=== PATIENT | female | born 1980 | race African-American/Black ===

== ENCOUNTER 2017-03-28 20:28 | Emergency (ER) | payer SELFPAY ==
[2017-03-28] MEDS ORDERED: ASPIRIN 81 MG TABLET, CHEWABLE PO ONE (21:09)
[2017-03-28 22:02] LABS: ABSOLUTE LYMPHOCYTES (AUTO) 0.3 10^3/uL (0.5-4.7); ABSOLUTE NEUT (AUTO) 3.7 10^3/uL (1.7-8.2); BASOPHILS % (AUTO) 0.5 % (0-2); HEMATOCRIT 32.4 % (36.0-47.0); HEMOGLOBIN 10.5 g/dL (12.0-15.5); HGB HCT DIFFERENCE -0.9; LYMPHOCYTES % (AUTO) 7.7 % (13-45); MEAN CORPUSCULAR HEMOGLOBIN 24.2 pg (27.0-33.4); MEAN CORPUSCULAR HGB CONC 32.5 g/dL (32.0-36.0); MEAN CORPUSCULAR VOLUME 75 fl (80-97); MONOCYTES % (AUTO) 0.9 % (3-13); RED BLOOD COUNT 4.35 10^6/uL (3.72-5.28); RED CELL DISTRIBUTION WIDTH 15.9 % (11.5-14.0); SEGMENTED NEUTROPHILS % (AUTO) 90.9 % (42-78)
[2017-03-28 22:14] LABS: ALANINE AMINOTRANSFERASE 32 U/L (9-52); ALBUMIN 4.6 g/dL (3.5-5.0); ALKALINE PHOSPHATASE 53 U/L (38-126); ANION GAP 11 (5-19); ASPARTATE AMINO TRANSFERASE 22 U/L (14-36); BILIRUBIN,DIRECT 0.3 mg/dL (0.0-0.4); BILIRUBIN,TOTAL 0.3 mg/dL (0.2-1.3); BLOOD UREA NITROGEN 13 mg/dL (7-20); CALCIUM 9.6 mg/dL (8.4-10.2); CARBON DIOXIDE 25 mmol/L (22-30); CHLORIDE 104 mmol/L (98-107); CREATINE KINASE 248 U/L (30-135); CREATININE RESULT 0.67 mg/dL (0.52-1.25); GLUCOSE 124 mg/dL (75-110); POTASSIUM 4.4 mmol/L (3.6-5.0); SODIUM 139.8 mmol/L (137-145); TOTAL PROTEIN 7.7 g/dL (6.3-8.2)
[2017-03-28 22:26] LABS: CREATINE KINASE MB 1.99 ng/mL (<4.55)
[2017-03-28 22:37] LABS: TROPONIN I < 0.012 ng/mL
[2017-03-28 22:53] LABS: APPEARANCE,URINE CLEAR; BILIRUBIN,URINE NEGATIVE (NEGATIVE); GLUCOSE, URINE NEGATIVE (NEGATIVE); KETONES,URINE NEGATIVE (NEGATIVE); LEUKOCYTE ESTERASE,URINE NEGATIVE (NEGATIVE); NITRITE,URINE NEGATIVE (NEGATIVE); PROTEIN,URINE NEGATIVE (NEGATIVE); URINE SPECIFIC GRAVITY 1.029
--- NOTE | 2017-03-28 22:55 | ER Document Report ---
ED Syncope and Near Syncope - General Chief Complaint: Syncope Stated Complaint: POSSBILE SYNCOPE Time Seen by Provider: 03/28/17 22:13 Mode of Arrival: Ambulatory Information source: Patient Notes: Patient states that she was at a doctor's appointment with her children this afternoon and was sitting in a chair when she began to have palpitations and then had a syncopal episode. Patient states that she was only briefly out and did not fall out of the chair. Patient states she has had 2 episodes over the past week of palpitations. Patient presently denies any complaints. Patient states she had some nausea yesterday but none today. Patient denies any vomiting diarrhea, cough or cold symptoms. Patient denies any recent travel, bedrest or immobilization. Patient denies any previous history of DVT or PE. TRAVEL OUTSIDE OF THE [place] IN LAST 30 DAYS: No - HPI Patient complains to provider of: Fainting Episode witnessed (by whom): Yes Symptoms prior to episode: Palpitations. No: Abdominal pain, Back pain, Chest pain, Fever, Headache, Racing heart, Short of breath, Sweaty Position/Activity at time of episode: Sitting Quality of pain: No pain Pain Level: Denies Context: denies: , Recent immobilization, Recent seizures, Recent travel Current symptoms: None/feels back to normal. denies: Headache, Nausea - Related Data Allergies/Adverse Reactions: No Known Allergies Allergy (Verified 03/28/17 23:37) Home Medications: Current Home Medications No Home Medications 03/28/17 [History] Past Medical History - General Information source: Patient - Social History Smoking Status: Never Smoker Frequency of alcohol use: None Drug Abuse: None Occupation: airport Lives with: Family Family History: Reviewed & Not Pertinent Patient has suicidal ideation: No Patient has homicidal ideation: No Renal/ Medical History: Denies: Hx Peritoneal Dialysis Musculoskeltal Medical History: Reports Other - back pain Surgical Hx: Negative - Immunizations Hx Diphtheria, Pertussis, Tetanus Vaccination: No Review of Systems - Review of Systems Constitutional: No symptoms reported. denies: Fever, Recent illness EENT: No symptoms reported Cardiovascular: Palpitations, Syncope. denies: Chest pain, Heart racing Respiratory: No symptoms reported. denies: Cough, Short of breath Gastrointestinal: Nausea - yest. denies: Vomiting Genitourinary: No symptoms reported Female Genitourinary: No symptoms reported Musculoskeletal: No symptoms reported. denies: Back pain, Neck pain Skin: No symptoms reported Hematologic/Lymphatic: No symptoms reported Neurological/Psychological: No symptoms reported Physical Exam - Vital signs Vitals: Temp Pulse Resp BP Pulse Ox 98.3 F 75 20 127/71 H 100 03/28/17 21:07 03/28/17 21:07 03/28/17 21:07 03/28/17 21:07 03/28/17 21:07 - General General appearance: Appears well, Alert In distress: None - HEENT Head: Normocephalic, Atraumatic Eyes: Normal Conjunctiva: Normal Pupils: PERRL Nasal: Normal Mouth/Lips: Normal Mucous membranes: Normal Neck: Normal, Supple. No: Lymphadenopathy - Respiratory Respiratory status: No respiratory distress Chest status: Nontender Breath sounds: Normal. No: Rales, Rhonchi, Stridor, Wheezing Chest palpation: Normal - Cardiovascular Rhythm: Regular Heart sounds: S1 appreciated, S2 appreciated Murmur: No - Abdominal Inspection: Normal Distension: No distension Bowel sounds: Normal Tenderness: Nontender Organomegaly: No organomegaly - Back Back: Normal, Nontender. No: CVA tenderness - Extremities General upper extremity: Normal inspection, Nontender, Normal ROM General lower extremity: Normal inspection, Nontender, Normal ROM - Neurological Neuro grossly intact: Yes Cognition: Normal Sloan Coma Scale Eye Opening: Spontaneous Sloan Coma Scale Verbal: Oriented Sloan Coma Scale Motor: Obeys Commands Sloan Coma Scale Total: 15 - Psychological Associated symptoms: Normal affect, Normal mood - Skin Skin Temperature: Warm Skin Moisture: Dry Skin Color: Normal Course - Re-evaluation Re-evalutation: 03/28/17 22:[address] Schmitz regarding patient presentation, reviewed patient's diagnostic test results. 03/29/17 00:01 Reviewed remaining results with Dr. Schmitz, agrees with discharge plan of care, recommends follow-up with primary doctor for further evaluation of thyroid function as well as cardiology follow-up - Vital Signs Vital signs: Temp Pulse Resp BP Pulse Ox 97.5 F 67 18 128/74 H 100 03/29/17 00:05 03/28/17 22:30 03/29/17 00:02 03/29/17 00:02 03/29/17 00:02 - Laboratory Result Diagrams: 03/28/17 21:50 03/28/17 21:50 Laboratory results interpreted by me: 03/28/17 03/28/17 03/28/17 21:50 21:50 21:50 Hgb 10.5 L Hct 32.4 L MCV 75 L MCH 24.2 L RDW 15.9 H Seg Neutrophils % 90.9 H Lymphocytes % 7.7 L Monocytes % 0.9 L Absolute Lymphocytes 0.3 L Absolute Monocytes 0.0 L Glucose 124 H Creatine Kinase 248 H TSH 0.18 L Urine Urobilinogen Urine Ascorbic Acid 03/28/17 22:25 Hgb Hct MCV MCH RDW Seg Neutrophils % Lymphocytes % Monocytes % Absolute Lymphocytes Absolute Monocytes Glucose Creatine Kinase TSH Urine Urobilinogen 2.0 H Urine Ascorbic Acid 40 H 03/29/17 00:01 Labs- Entire Visit 03/28/17 03/28/17 03/28/17 21:50 21:50 21:50 WBC 4.0 RBC 4.35 Hgb 10.5 L Hct 32.4 L MCV 75 L MCH 24.2 L MCHC 32.5 RDW 15.9 H Plt Count 295 Seg Neutrophils % 90.9 H Lymphocytes % 7.7 L Monocytes % 0.9 L Eosinophils % 0.0 Basophils % 0.5 Absolute Neutrophils 3.7 Absolute Lymphocytes 0.3 L Absolute Monocytes 0.0 L Absolute Eosinophils 0.0 Absolute Basophils 0.0 Sodium 139.8 Potassium 4.4 Chloride 104 Carbon Dioxide 25 Anion Gap 11 BUN 13 Creatinine 0.67 Est GFR ( Amer) > 60 Est GFR (Non-Af Amer) > 60 Glucose 124 H Calcium 9.6 Total Bilirubin 0.3 Direct Bilirubin 0.3 Indirect Bilirubin Not Reportable Neonat Total Bilirubin Not Reportable AST 22 ALT 32 Alkaline Phosphatase 53 Creatine Kinase 248 H CK-MB (CK-2) 1.99 Troponin I < 0.012 Total Protein 7.7 Albumin 4.6 TSH Free T4 Free T3 pg/mL Urine Color Urine Appearance Urine pH Ur Specific [place] Urine Protein Urine Glucose (UA) Urine Ketones Urine Blood Urine Nitrite Urine Bilirubin Urine Urobilinogen Ur Leukocyte Esterase Urine WBC (Auto) Urine RBC (Auto) Squamous Epi Cells Auto Urine Mucus (Auto) Urine Ascorbic Acid Urine HCG, Qual 03/28/17 03/28/17 03/28/17 21:50 21:50 22:25 WBC RBC Hgb Hct MCV MCH MCHC RDW Plt Count Seg Neutrophils % Lymphocytes % Monocytes % Eosinophils % Basophils % Absolute Neutrophils Absolute Lymphocytes Absolute Monocytes Absolute Eosinophils Absolute Basophils Sodium Potassium Chloride Carbon Dioxide Anion Gap BUN Creatinine Est GFR ( Amer) Est GFR (Non-Af Amer) Glucose Calcium Total Bilirubin Direct Bilirubin Indirect Bilirubin Neonat Total Bilirubin AST ALT Alkaline Phosphatase Creatine Kinase CK-MB (CK-2) Troponin I Total Protein Albumin TSH 0.18 L Free T4 1.02 Free T3 pg/mL 3.74 Urine Color YELLOW Urine Appearance CLEAR Urine pH 6.0 Ur Specific [place] 1.029 Urine Protein NEGATIVE Urine Glucose (UA) NEGATIVE Urine Ketones NEGATIVE Urine Blood NEGATIVE Urine Nitrite NEGATIVE Urine Bilirubin NEGATIVE Urine Urobilinogen 2.0 H Ur Leukocyte Esterase NEGATIVE Urine WBC (Auto) 0 Urine RBC (Auto) 1 Squamous Epi Cells Auto 1 Urine Mucus (Auto) FEW Urine Ascorbic Acid 40 H Urine HCG, Qual 03/28/17 22:25 WBC RBC Hgb Hct MCV MCH MCHC RDW Plt Count Seg Neutrophils % Lymphocytes % Monocytes % Eosinophils % Basophils % Absolute Neutrophils Absolute Lymphocytes Absolute Monocytes Absolute Eosinophils Absolute Basophils Sodium Potassium Chloride Carbon Dioxide Anion Gap BUN Creatinine Est GFR ( Amer) Est GFR (Non-Af Amer) Glucose Calcium Total Bilirubin Direct Bilirubin Indirect Bilirubin Neonat Total Bilirubin AST ALT Alkaline Phosphatase Creatine Kinase CK-MB (CK-2) Troponin I Total Protein Albumin TSH Free T4 Free T3 pg/mL Urine Color Urine Appearance Urine pH Ur Specific [place] Urine Protein Urine Glucose (UA) Urine Ketones Urine Blood Urine Nitrite Urine Bilirubin Urine Urobilinogen Ur Leukocyte Esterase Urine WBC (Auto) Urine RBC (Auto) Squamous Epi Cells Auto Urine Mucus (Auto) Urine Ascorbic Acid Urine HCG, Qual NEGATIVE - EKG Interpretation by Me EKG shows normal: Sinus rhythm Rate: Normal Rhythm: NSR Discharge - Discharge Clinical Impression: Abnormal TSH, Palpitations Syncope Qualifiers: Syncope type: unspecified Qualified Code(s): R55 - Syncope and collapse Condition: Stable Disposition: HOME, SELF-CARE Instructions: Anemia ([facility]), Palpitations (Irregular or Rapid Heartrate) ([facility]), Syncopal Episode ([facility]) Additional Instructions: Return immediately for any new or worsening symptoms Followup with your primary care provider, call tomorrow to make a followup appointment Your TSH test was low today but your free T3 and T4 tests were normal, follow- up with your primary doctor have this reevaluated. Follow-up with a model maker plaster for further evaluation of syncopal episode. Forms: Return to Work Referrals: CHRISSY WINTERS MD [Primary Care Provider] - Follow up as needed DAVID BRADSHAW MD [ACTIVE STAFF] - Follow up in 3-5 days
[2017-03-28 23:40] LABS: FREE T3 3.74 pg/mL (2.77-5.27)
[2017-03-29 00:15] VITALS: BP 128/74
--- NOTE | 2017-03-29 07:03 | EKG REPORT ---
SEVERITY:- NORMAL ECG - SINUS RHYTHM : Confirmed by: Parrish Huff 29-Mar-2017 07:02:43
== END 2017-03-29 00:10 | disposition home or self-care (01) ==
LOC: ER 20:28
DX: R94.6 Abnormal results of thyroid function studies (principal); R55 Syncope and collapse; R00.2 Palpitations
CPT/HCPCS: 36415; 80053; 81001; 81025; 82550; 82553; 84439; 84443; 84481; 84484; 85025; 93005; 93010; 99284

== ENCOUNTER 2017-12-15 10:47 | Outpatient (CLI) | payer MEDICAID ==
[~2017-12-15 10:47] MED LIST: FERRIC CARBOXYMALTOSE 750 MG in NORMAL SALINE 250 ML IV PRN; NORMAL SALINE 250 ML IV PRN
[2017-12-15 11:24] VITALS: BP 123/59
== END 2017-12-15 12:51 | disposition home or self-care (01) ==
LOC: II 10:47 → 5TH 11:01 → II 12:51
PROVIDERS: ATTEND Internal Medicine Hematology & Oncology
PROC: 3E033GC Introduction of Other Therapeutic Substance into Peripheral Vein, Percutaneous Approach (ICD-10-PCS; principal; 2017-12-15)
DX: D50.9 Iron deficiency anemia, unspecified (principal)
CPT/HCPCS: 96367; J7050; J1439; 96365

== ENCOUNTER 2017-12-22 10:46 | Outpatient (CLI) | payer MEDICAID ==
[2017-12-22 11:58] VITALS: BP 90/61
== END 2017-12-22 13:06 | disposition home or self-care (01) ==
LOC: II 10:46 → 5TH 10:48 → II 13:06
PROVIDERS: ATTEND Internal Medicine Hematology & Oncology
PROC: 3E033GC Introduction of Other Therapeutic Substance into Peripheral Vein, Percutaneous Approach (ICD-10-PCS; principal; 2017-12-22)
DX: D50.9 Iron deficiency anemia, unspecified (principal); K90.9 Intestinal malabsorption, unspecified
CPT/HCPCS: 96367; J7050; J1439; 96374

== ENCOUNTER 2019-02-28 09:36 | Emergency (ER) | payer MEDICAID ==
[2019-02-28 10:07] LABS: APPEARANCE,URINE CLEAR; BILIRUBIN,URINE NEGATIVE (NEGATIVE); COLOR,URINE STRAW; GLUCOSE, URINE NEGATIVE (NEGATIVE); KETONES,URINE NEGATIVE (NEGATIVE); LEUKOCYTE ESTERASE,URINE NEGATIVE (NEGATIVE); NITRITE,URINE NEGATIVE (NEGATIVE); PROTEIN,URINE NEGATIVE (NEGATIVE); URINE SPECIFIC GRAVITY 1.004; UROBILINOGEN,URINE NEGATIVE mg/dL (<2.0)
[2019-02-28] MEDS ORDERED: ONDANSETRON HCL INJ/PF 4 MG/2 ML SDV IV ONE (10:16)
[2019-02-28] MEDS ORDERED: MORPHINE SULFATE 10 MG/ML INJ IV ONE (10:16)
--- NOTE | 2019-02-28 10:20 | ER Document Report ---
ED GI/ - General Chief Complaint: Abdominal Pain Stated Complaint: ABDOMINAL PAIN Time Seen by Provider: 02/28/19 10:02 Primary Care Provider: [facility] [Provider Group] - Follow up tomorrow Mode of Arrival: Ambulatory Information source: Patient Notes: 38-year-old female patient who is 14 weeks by history comes emergency room with sudden onset at 5 AM this morning of abdominal pelvic cramping going into the low back. She also reports having increased urinary frequency. She reports she took stool softeners, Pepto-Bismol, and drank a lot of fluids thinking it was gas. This did not help. She reports she had 3 soft BMs. Patient reports she works for the [employer] at the [employer] and was lifting a lot of heavy baggage yesterday. She is G6, , 14 weeks . She has never had RhoGam shots in the past. TRAVEL OUTSIDE OF THE [place] IN LAST 30 DAYS: No - Related Data Allergies/Adverse Reactions: No Known Allergies Allergy (Verified 02/28/19 09:37) Past Medical History - General Information source: Patient - Social History Smoking Status: Unknown if Ever Smoked Cigarette use (# per day): No Chew tobacco use (# tins/day): No Smoking Education Provided: No Frequency of alcohol use: None Drug Abuse: None Lives with: Family Family History: Reviewed & Not Pertinent - Medical History Medical History: Negative Surgical Hx: Negative - Immunizations Hx Diphtheria, Pertussis, Tetanus Vaccination: No Review of Systems - Review of Systems Constitutional: No symptoms reported EENT: No symptoms reported Cardiovascular: No symptoms reported Respiratory: No symptoms reported Gastrointestinal: No symptoms reported Genitourinary: See HPI Female Genitourinary: See HPI Musculoskeletal: No symptoms reported Skin: No symptoms reported Hematologic/Lymphatic: No symptoms reported Neurological/Psychological: No symptoms reported Physical Exam - Vital signs Vitals: Temp Pulse Resp BP Pulse Ox 98.4 F 99 20 119/64 99 02/28/19 09:43 02/28/19 09:43 02/28/19 09:43 02/28/19 09:43 02/28/19 09:43 Interpretation: Normal - General General appearance: Alert, Anxious In distress: Moderate - HEENT Head: Normocephalic, Atraumatic Eyes: Normal Pupils: PERRL - Respiratory Respiratory status: No respiratory distress Breath sounds: Normal - Cardiovascular Rhythm: Regular Heart sounds: Normal auscultation Murmur: No - Abdominal Inspection: Normal Bowel sounds: Normal Tenderness: Tender - Some tenderness to palpate the lower abdomen pelvic region. - Back Back: Normal - Extremities General upper extremity: Normal inspection General lower extremity: Normal inspection - Neurological Neuro grossly intact: Yes - Psychological Associated symptoms: Normal affect, Normal mood - Skin Skin Temperature: Warm Skin Moisture: Dry Skin Color: Normal Course - Vital Signs Vital signs: Temp Pulse Resp BP Pulse Ox 98.4 F 99 20 119/64 99 02/28/19 09:43 02/28/19 09:43 02/28/19 09:43 02/28/19 09:43 02/28/19 09:43 - Laboratory Result Diagrams: 02/28/19 11:04 02/28/19 11:04 Laboratory results interpreted by me: 02/28/19 11:04 MCV 73 L MCH 23.8 L RDW 21.8 H Seg Neutrophils % 79.4 H Lymphocytes % 9.1 L - Diagnostic Test Radiology reviewed: Reports reviewed - Ultrasound shows a 15-week 1 day intrauterine with a heart rate of 145. There are uterine fibroids, largest measures 5.6 cm. - Consults Dr. Monteiro Time consulted: 13:00 Consulted provider: follow-up in office - She will call the office to have them contact the patient to schedule follow-up appointment tomorrow. Discharge - Discharge Clinical Impression: with 15 completed weeks gestation, Uterine fibroids affecting in second trimester, Pelvic cramping Condition: Stable Disposition: HOME, SELF-CARE Additional Instructions: Your ultrasound shows a 15-week 1 day with a heart rate of 145. There are uterine fibroids that are likely the cause of your cramping discomfort. Take ibuprofen 800 mg every 8 hours for the next few days. Follow[facility]. RETURN TO THE EMERGENCY ROOM IF ANY NEW OR WORSENING SYMPTOMS. Forms: Return to Work Referrals: [facility] [Provider Group] - Follow up tomorrow
[2019-02-28 11:15] LABS: ABSOLUTE LYMPHOCYTES (AUTO) 0.8 10^3/uL (0.5-4.7); ABSOLUTE MONOCYTES (AUTO) 0.9 10^3/uL (0.1-1.4); ABSOLUTE NEUT (AUTO) 6.6 10^3/uL (1.7-8.2); BASOPHILS % (AUTO) 0.3 % (0-2); HEMATOCRIT 37.1 % (36.0-47.0); HEMOGLOBIN 12.1 g/dL (12.0-15.5); LYMPHOCYTES % (AUTO) 9.1 % (13-45); MEAN CORPUSCULAR HEMOGLOBIN 23.8 pg (27.0-33.4); MEAN CORPUSCULAR HGB CONC 32.6 g/dL (32.0-36.0); MEAN CORPUSCULAR VOLUME 73 fl (80-97); MONOCYTES % (AUTO) 11.2 % (3-13); PLATELET COUNT 285 10^3/uL (150-450); RED BLOOD COUNT 5.08 10^6/uL (3.72-5.28); RED CELL DISTRIBUTION WIDTH 21.8 % (11.5-14.0); SEGMENTED NEUTROPHILS % (AUTO) 79.4 % (42-78); TOTAL CELLS COUNTED % (AUTO) 100 %; WHITE BLOOD COUNT 8.3 10^3/uL (4.0-10.5)
[2019-02-28 11:36] LABS: ALBUMIN 4.1 g/dL (3.5-5.0); ALKALINE PHOSPHATASE 57 U/L (38-126); ANION GAP 9 (5-19); ASPARTATE AMINO TRANSFERASE 29 U/L (14-36); BILIRUBIN,DIRECT 0.3 mg/dL (0.0-0.4); BILIRUBIN,TOTAL 0.4 mg/dL (0.2-1.3); BLOOD UREA NITROGEN 8 mg/dL (7-20); CALCIUM 9.8 mg/dL (8.4-10.2); CARBON DIOXIDE 22 mmol/L (22-30); CHLORIDE 106 mmol/L (98-107); GLUCOSE 80 mg/dL (75-110); TOTAL PROTEIN 7.2 g/dL (6.3-8.2)
--- NOTE | 2019-02-28 12:23 | RADIOLOGY REPORT (SQ) ---
EXAM DESCRIPTION: U/S OB 14+ TRNABD 1GES W/O DOP COMPLETED DATE/TIME: 02/28/2019 12:07 pm REASON FOR STUDY: 14 weeks, pelvic cramps COMPARISON: None. TECHNIQUE: Static and Dynamic grayscale imaging performed of gravid uterus using transabdominal appr oac. Additional selected color Doppler and spectral images recorded. All stored on PACS. LIMITATIONS: None. FINDINGS: FETUSES SEEN:1 EGA: 15 weeks 1 day Calculated using BPD,FL,HC,AC documented on images. No discrepancy with clinical dates. RAY: 08/21/2019 EFW: Not calculated grams PERCENTILE: Not calculated LVP: 3.4 cm PLACENTA: Anterior grade 1 PRESENTATION: Cephalic. ANATOMY: HEART RATE: 145 beats per minute. FOUR CHAMBER HEART: Not confirmed THREE VESSEL CORD: Yes. CORD INSERTION: Visualized. KIDNEYS AND BLADDER: Kidneys not seen. Bladder is normal. STOMACH: Not seen. SPINE: Normal as visualized. BRAIN AND LATERAL VENTRICLES: Structures not well seen. OTHER: No other significant finding. MATERNAL ADNEXA: Maternal ovaries not visualized. CERVICAL LENGTH: 2.7 cm. Closed. OTHER: Uterine fibroids are seen. The largest measures 5.6 cm. IMPRESSION: LIVING INTRAUTERINE . ESTIMATED GESTATIONAL AGE 15 weeks 1 day No visualized anomalies. Some anatomic structures were not able to be seen. Trimester of : Second trimester - 13 weeks 1 day to 27 weeks 6 days. TECHNICAL DOCUMENTATION: JOB ID: [id number] [employer]- All Rights Reserved Reading location - IP/workstation name: [email or web address]
[2019-02-28] MEDS ORDERED: KETOROLAC TROMETHAMINE INJ/PF 30 MG/1 ML SDV IV ONE (13:02)
[2019-02-28 13:39] VITALS: BP 115/68
== END 2019-02-28 13:40 | disposition home or self-care (01) ==
LOC: ER 09:36
DX: O34.12 Maternal care for benign tumor of corpus uteri, second trimester (principal); D25.9 Leiomyoma of uterus, unspecified; R10.2 Pelvic and perineal pain; Z3A.15 15 weeks gestation of pregnancy
CPT/HCPCS: 36415; 85025; 80053; 81001; 76805; J1885; J2270; J2405; 96374; 99284

== ENCOUNTER → 2019-04-06 | Outpatient (CLI) | payer MEDICAID | LOC: OD 16:59 | PROVIDERS: ATTEND Midwife | DX: Z36.89 Encounter for other specified antenatal screening (principal) | CPT/HCPCS: 36415; 82105 ==

== ENCOUNTER 2019-08-06 16:31 | Outpatient (CLI) | payer MEDICAID ==
--- NOTE | 2019-08-06 17:30 | Non Stress Test Report ---
Non Stress Test Datetime Report Generated by CPN: 08/06/2019 17:30 DEMOGRAPHIC EGA NST: 37.2 INDICATION Indication for Study (NST) Other: 37.2 AMA Repeat NST MONITORING Monitor Explained: Monitor Explained; Test Explained; Patient Verbalized Understanding Time on Monitor: 08/06/2019 16:43 Time off Monitor: 08/06/2019 17:23 NST Duration: 40 NST INTERVENTIONS NST Interventions: PO Hydration; Reposition Patient Physician Notified NST: Dr. See BABY A: [id number] BABY A Movement : Present Contraction Frequency : None FHR Baseline : 135 Accelerations : 15X15 Decelerations : None Variability : Moderate 6-25bpm NST Review: Meets Criteria for Reactive NST NST Review and Verified By : Simon Mcginnis RN NST Results: Reactive NST COMMENTS NST Comments: Provider on unit, reviewed strip NST REPORT Report Trigger: Send Report
== END 2019-08-06 17:28 | disposition home or self-care (01) ==
LOC: LC 16:31
PROVIDERS: ATTEND Obstetrics & Gynecology
PROC: 4A1HXCZ Monitoring of Products of Conception, Cardiac Rate, External Approach (ICD-10-PCS; principal; 2019-08-06)
DX: O09.523 Supervision of elderly multigravida, third trimester (principal); Z3A.37 37 weeks gestation of pregnancy
CPT/HCPCS: 59025

== ENCOUNTER 2019-08-14 01:12 | Inpatient (IN) | payer MEDICAID ==
[2019-08-14 01:58] LABS: APPEARANCE,URINE CLOUDY; BILIRUBIN,URINE NEGATIVE (NEGATIVE); COLOR,URINE YELLOW; GLUCOSE, URINE NEGATIVE (NEGATIVE); KETONES,URINE NEGATIVE (NEGATIVE); LEUKOCYTE ESTERASE,URINE NEGATIVE (NEGATIVE); NITRITE,URINE NEGATIVE (NEGATIVE); PROTEIN,URINE 30 mg/dL (NEGATIVE); URINE SPECIFIC GRAVITY 1.008; UROBILINOGEN,URINE NEGATIVE mg/dL (<2.0)
[2019-08-14 02:18] LABS: URINE AMPHETAMINES SCREEN NEGATIVE; URINE BARBITURATES SCREEN NEGATIVE; URINE BENZODIAZEPINES SCREEN NEGATIVE; URINE COCAINE SCREEN NEGATIVE; URINE MARIJUANA (THC) SCREEN NEGATIVE; URINE METHADONE SCREEN NEGATIVE; URINE PHENCYCLIDINE SCREEN NEGATIVE
[2019-08-14] MEDS ORDERED: OXYTOCIN 10 UNIT/ML VIAL ONE (03:13)
[2019-08-14] MEDS ORDERED: LIDOCAINE 1% INJ-PF (10 MG/ML) 30 ML SDV ONE (03:13)
[2019-08-14] MEDS ORDERED: MISOPROSTOL 0.2 MG TABLET ONE (03:13)
[2019-08-14] MEDS ORDERED: OXYTOCIN/NORMAL SALINE 20 UNIT/1,000 ML RTUINJ ONE (03:14)
[2019-08-14] MEDS ORDERED: RINGERS SOLUTION,LACTATED 1,000 ML IV PRN (03:24)
[2019-08-14 05:09] LABS: ABSOLUTE MONOCYTES (AUTO) 0.7 10^3/uL (0.1-1.4); ABSOLUTE NEUT (AUTO) 3.7 10^3/uL (1.7-8.2); BASOPHILS % (AUTO) 0.4 % (0-2); EOSINOPHILS % (AUTO) 0.4 % (0-6); HEMATOCRIT 36.1 % (36.0-47.0); HEMOGLOBIN 11.8 g/dL (12.0-15.5); LYMPHOCYTES % (AUTO) 18.8 % (13-45); MEAN CORPUSCULAR HEMOGLOBIN 25.1 pg (27.0-33.4); MEAN CORPUSCULAR HGB CONC 32.7 g/dL (32.0-36.0); MEAN CORPUSCULAR VOLUME 77 fl (80-97); MONOCYTES % (AUTO) 12.3 % (3-13); PLATELET COUNT 245 10^3/uL (150-450); RED BLOOD COUNT 4.71 10^6/uL (3.72-5.28); RED CELL DISTRIBUTION WIDTH 17.1 % (11.5-14.0); SEGMENTED NEUTROPHILS % (AUTO) 68.1 % (42-78); TOTAL CELLS COUNTED % (AUTO) 100 %; WHITE BLOOD COUNT 5.5 10^3/uL (4.0-10.5)
--- NOTE | 2019-08-14 06:13 | Admission Physical ---
Datetime Report Generated by CPN: 08/14/2019 06:13 CURRENT ADMISSION Chief Complaint: Uterine Contractions; Suspected Ruptured Membranes Indication for Induction: Not Applicable Admit Impression : Term, Intrauterine ; Ruptured Membranes Admit Plan: Admit to Unit; Initiate Labor Protocol ALLERGIES Medication Allergies: No Medication Allergies: No Known Allergies (02/28/2019) Latex: No Latex Allergies OBSTETRICAL HISTORY EDC: 08/25/2019 00:00 : 6 Para: 3 Term: 3 : 0 SAB: 2 IAB: 0 Livin Gestational Diabetes: No Rh Sensitization: No Incompetent Cervix: No RENATE: No Infertility: No ART Treatment: No Uterine Anomaly: No IUGR: No Hx Previous C/S: No Macrosomia: No Hx Loss/Stillborn: No PIH: No Hx : No Placenta Previa/Abruption: No Depression/PP Depression: No PTL/PROM: No Post Hemorrhage: No Current Procedures: Ultrasound; NST SEE RECORDS Alcohol: No Marijuana : No Cocaine: No Other Illicit Drugs: No Cigarettes: Never Smoker. [id number] MEDICAL HISTORY Diabetes: No Blood Transfusion: No Pulmonary Disease (Asthma, TB): No Breast Disease: No Hypertension: No Audit Director Surgery: No Heart Disease: No Hosp/Surgery: No Autoimmune Disorder: No Anesthetic Complications: No Kidney Disease: No Abnormal Pap Smear: No Neuro/Epilepsy: No Psychiatric Disorders: No Other Medical Diseases: No Hepatitis/Liver Disease: No Significant Family History: No Varicosities/Phlebitis: No Trauma/Violence : No Thyroid Dysfunction: No INFECTIOUS HISTORY Gonorrhea: No Genital Herpes: No Chlamydia: No Tuberculosis: No Syphilis: No Hepatitis: No HIV/AIDS Exposure: No Rash or Viral Illness: No HPV: No PHYSICAL EXAM General: Normal HEENT: Normal Neurologic: Normal Thyroid: Normal Heart: Normal Lungs: Normal Breast: Deferred Back: Normal Abdomen: Normal Genitourinary Exam: Normal Extremities: Normal DTRs: Normal Pelvic Type: Adequate Vital Signs: Reviewed VAGINAL EXAM Dilatation: 2 Effacement: 0 Station: -2 MEMBRANES Pooling: Positive Membranes: Ruptured FETUS A EGA: 38.3 Monitoring: External US FHR- Baseline: 130 Variability: Moderate 6-25bpm Decelerations: None FHR Category: Category I Presentation: Vertex Admit Comment: will augment with pitocin PLANS FOR LABOR AND DELIVERY Labor and Delivery: None Pain Management: Local; Epidural Feeding Preference: Breast Circumcision: Yes INFORMED CONSENT Signature: with User ID: [email or web address]
[2019-08-14] MEDS ORDERED: NALBUPHINE HCL INJ 10 MG/1 ML AMPULE ONE (12:26)
[2019-08-14] MEDS ORDERED: NALBUPHINE HCL INJ 10 MG/1 ML AMPULE IV ONE (13:00)
[2019-08-14] MEDS ORDERED: PHENYLEPHRINE HCL INJ/PF 10 MG/1 ML SDV ONE (14:33)
[2019-08-14] MEDS ORDERED: EPHEDRINE SULFATE INJ 50 MG/1 ML AMPULE ONE (14:33)
[2019-08-14] MEDS ORDERED: FENTANYL CITRATE INJ/PF 100 MCG/2 ML AMPUL ONE (14:33)
[2019-08-14] MEDS ORDERED: FENTANYL/BUPIVACAINE/NS/PF 0 MCG/0 ML RTUINJ EPI ONE (14:34)
[2019-08-14] MEDS ORDERED: BUPIVACAINE HCL 0.25 % INJ/PF (2.5 MG/1 ML) 30 ML VIAL ONE (14:34)
[2019-08-14] MEDS ORDERED: ACETAMINOPHEN WITH CODEINE #3 TABLET PO PRN (15:33)
[2019-08-14] MEDS ORDERED: NA PHOS,M-B/NA PHOS,DI-BA (ADULT) 133 ML ENEMA PR PRN (15:33)
[2019-08-14] MEDS ORDERED: PROMETHAZINE HCL INJ 25 MG/1 ML VIAL IV PRN (15:33)
[2019-08-14] MEDS ORDERED: MEASLES,MUMPS&RUBELLA VACC/PF 0.5 ML VIAL SUBCUT PRN (15:33)
[2019-08-14] MEDS ORDERED: GLYCERIN/WITCH HAZEL LEAF 1 EACH MED..WIPE TP PRN (15:33)
[2019-08-14] MEDS ORDERED: DIBUCAINE 1% OINTMENT 28 GM TP PRN (15:33)
[2019-08-14] MEDS ORDERED: PSEUDOEPHEDRINE HCL 30 MG TABLET PO PRN (15:33)
[2019-08-14] MEDS ORDERED: MISOPROSTOL 0.2 MG TABLET PR PRN (15:33)
[2019-08-14] MEDS ORDERED: MAGNESIUM HYDROXIDE SUSP 30 ML UDCUP PO PRN (15:33)
[2019-08-14] MEDS ORDERED: DIPHENHYDRAMINE HCL 25 MG CAPSULE PO PRN (15:33)
[2019-08-14] MEDS ORDERED: PROMETHAZINE HCL 25 MG TABLET PO PRN (15:33)
[2019-08-14] MEDS ORDERED: ACETAMINOPHEN 650 MG SUPP.RECT PR PRN (15:33)
[2019-08-14] MEDS ORDERED: OXYTOCIN/NORMAL SALINE 20 UNIT/1,000 ML RTUINJ IV PRN (15:33)
[2019-08-14] MEDS ORDERED: PROMETHAZINE HCL 25 MG SUPP.RECT PR PRN (15:33)
[2019-08-14] MEDS ORDERED: DIPH/PERTUSS(ACELL)/TETANUS VAC/PF 0.5 ML SYR (>=10YO) IM PRN (15:33)
[2019-08-14 16:48] LABS: HEMATOCRIT 37.9 % (36.0-47.0); HEMOGLOBIN 12.6 g/dL (12.0-15.5); MEAN CORPUSCULAR HEMOGLOBIN 25.6 pg (27.0-33.4); MEAN CORPUSCULAR HGB CONC 33.3 g/dL (32.0-36.0); MEAN CORPUSCULAR VOLUME 77 fl (80-97); PLATELET COUNT 242 10^3/uL (150-450); RED BLOOD COUNT 4.94 10^6/uL (3.72-5.28); RED CELL DISTRIBUTION WIDTH 16.5 % (11.5-14.0); WHITE BLOOD COUNT 8.7 10^3/uL (4.0-10.5)
--- NOTE | 2019-08-14 17:12 | Delivery Summary ---
Del Sum A-C Datetime Report Generated by CPN: 08/14/2019 17:12 DELIVERY PERSONNEL DELIVERY PERSONNEL: [id number] Delivery Doctor:: Mimi Viera CNM Labor and Delivery Nurse:: Lois Cedeno RNflat sorter processor Nurse:: Gladis Magallon RN Nursery Nurse:: Malka Reardon RN Engineer Automated Equipment/EXTERIOR DOOR INSTALLER: Miranda Akhtar CNA II MATERNAL INFORMATION Delivery Anesthesia: None Medications After Delivery: Pitocin Bolus-Please Comment; Pitocin Drip 20 Units/1000ml NSS; Cytotec 600mcg Per Rectum/Vagina Meds After Delivery Comment: Pitocin 20units/1000mL Delivery QBL: 100 Maternal Complications: None Provider Comments: pt out of control with pushing, viable male, at delivery of head, mom stopped pushing and we had a shoulder dystocia, Tessie, and delivery with suprapubic pressure, placed on mothers abdomen, stimulated, cord clamped and cut by father, baby started crying, moving all extremities, good cry and heart rate Spont delivery of grossly nl intact placenta, 3 VC,cord blood obtained no lacerations mom and baby remain in recovery in stable condition Cytotec 600 mcg via rectum LABOR SUMMARY EDC: 08/25/2019 00:00 No. Babies in Womb: 1 Attempted: No Labor Anesthesia: None LABOR INFORMATION Reason for Induction: Not Applicable Onset of Labor: 08/14/2019 13:00 Complete Dilatation: 08/14/2019 15:07 Oxytocin: Induction Group B Beta Strep: Negative Antibiotics # of Doses: N/a Antibiotics Time of Last Dose: n/a Name of Antibiotic Given: n/a Steroids Given: None Reason Steroids Not Administered: Not Applicable MEMBRANES Membranes Rupture Method: Spontaneous Rupture of Membranes: 08/14/2019 00:00 Length of Rupture (hr): 15.32 Amniotic Fluid Color: Clear Amniotic Fluid Amount: Small Amniotic Fluid Odor: Normal STAGES OF LABOR Stage 1 hr: 2 Stage 1 min: 7 Stage 2 hr: 0 Stage 2 min: 12 Stage 3 hr: 0 Stage 3 min: 3 Total Time in Labor hr: 2 Total Time in Labor min: 22 VAGINAL DELIVERY Episiotomy: None Laceration #1: None Laceration Repair: Not Applicable Sponge Count Correct: N/A Sharps Count Correct: N/A BABY A INFORMATION Delivery Date/Time: 08/14/2019 15:19 Method of Delivery: Vaginal Born in Route : No : N/A Forceps: N/A Vacuum Extraction: N/A Shoulder Dystocia : Yes SHOULDER DYSTOCIA BABY A Delivery of Head: 08/14/2019 15:18 Time Head to Delivery : 1.0 1st Intervention to Resolve: McRobert's Maneuver 2nd Intervention to Resolve: Suprapubic Pressure Verify NO Fundal Pressure: No Fundal Pressure Applied Arm Under Symphisis at Del: Right PRESENTATION/POSITION BABY A Presentation: Cephalic Cephalic Presentation: Vertex Vertex Position: Left Occipital Anterior Breech Presentation: N/A PLACENTA INFORMATION BABY A Placenta Delivery Time : 08/14/2019 15:22 Placenta Method of Delivery: Spontaneous Placenta Status: Delivered SCORES BABY A Heart Rate 1 min: >100 bpm Resp Effort 1 min: Good Cry Reflex Irritability 1 min: Cough or Sneeze or Pulls Away Muscle Tone 1 min: Active Motion Color 1 min: Blue/Pale Resuscitation Effort 1 min: Tactile Stimulation SCORE 1 MIN: 8 Heart Rate 5 min: >100 bpm Resp Effort 5 min: Good Cry Reflex Irritability 5 min: Cough or Sneeze or Pulls Away Muscle Tone 5 min: Active Motion Color 5 min: Body [place], Extremities Blue Resuscitation Effort 5 min: Tactile Stimulation SCORE 5 MIN: 9 INFORMATION BABY A Gestational Age at Delivery: 38.3 Gestational Status: Early Term- 37- 38.6 Weeks Infant Outcome : Liveborn Infant Condition : Stable Infant Sex: Male IDENTIFICATION BABY A Infant Verification Date/Time: 08/14/2019 15:34 ID Band Number: [id number] Mother's Name Verified: Yes Infant RN Verifying Infant: AFmichele, RN and R. [place], RN WEIGHT/LENGTH BABY A Birthweight (gm): 3182 Infant Weight (lb): 7 Infant Weight (oz): 0 Infant Length (in): 19.75 Length (cm): 50.17 CORD INFORMATION BABY A No. Cord Vessels: 3 Nuchal Cord : N/A Cord Blood Taken: Yes-For Eval (Mom's Blood Type - or O+) Suction: None ASSESSMENT BABY A Skin to Skin: Yes BABY B INFORMATION : N/A
[2019-08-14] MEDS ORDERED: IBUPROFEN 800 MG TABLET ONE ×2 (17:32→23:58)
[2019-08-14] MEDS ORDERED: BENZOCAINE/MENTHOL AEROSOL SPRAY 56 ML ONE (17:55)
[2019-08-14] MEDS: BENZOCAINE/MENTHOL AEROSOL SPRAY 56 ML TOP PRN (18:20)
[2019-08-14] MEDS ORDERED: ACETAMINOPHEN WITH CODEINE #3 TABLET ONE (21:16)
[2019-08-14] MEDS: ACETAMINOPHEN WITH CODEINE #3 TABLET PO PRN (21:18)
[2019-08-14] MEDS ORDERED: FAMOTIDINE 20 MG TABLET ONE (23:58)
[2019-08-15] MEDS: FAMOTIDINE 20 MG TABLET PO SCH ×3 (00:01→21:07)
[2019-08-15] MEDS: IBUPROFEN 800 MG TABLET PO SCH ×4 (00:01→21:07)
[2019-08-15] MEDS ORDERED: IBUPROFEN 800 MG TABLET ONE (06:01)
[2019-08-15] MEDS: DOCUSATE SODIUM 100 MG CAPSULE PO SCH ×3 (08:23→17:58)
[2019-08-15] MEDS: FERROUS SULFATE 325 MG TABLET PO SCH ×3 (08:23→17:58)
[2019-08-15] MEDS: SENNOSIDES/DOCUSATE 8.6-50 MG 1 EACH TABLET PO SCH (09:41)
[2019-08-15] MEDS: PRENATAL VITAMIN W DHA CAPSULE PO SCH (09:41)
--- NOTE | 2019-08-15 09:53 | PDOC PROGRESS REPORT ---
Subjective-OB Progress Note for:: 08/15/19 - PP Day #1, doing well, Rh+/ Rubella Immunek,, Physical Exam (OB) Vital Signs: Temp Pulse Resp BP Pulse Ox 97.7 F 66 16 122/58 L 99 08/15/19 08:40 08/15/19 08:40 08/15/19 08:40 08/15/19 08:40 08/15/19 08:40 Intake & Output 08/14/19 08/15/19 08/16/19 06:59 06:59 06:59 Weight 103.6 kg - General General Appearance: Appears well, Alert In distress: None - Respiratory Respiratory Status: No respiratory distress - Abdominal Tenderness: Nontender - Genitourinary Genitourinary Note: voiding - Extremities Upper extremity: Normal inspection Lower extremities: Normal inspection - Skin Skin Temperature: Warm Skin Moisture: Dry Objective-Diagnostic Laboratory: 08/14/19 16:32 08/14/19 16:32 WBC 8.7 RBC 4.94 Hgb 12.6 Hct 37.9 MCV 77 L MCH 25.6 L MCHC 33.3 RDW 16.5 H Plt Count 242 Assessment and Plan(PN) - Assessment and Plan (1) Routine follow-up Is this a current diagnosis for this admission?: Yes (2) Delivery normal Is this a current diagnosis for this admission?: Yes Plan:: Routine PP orders, ambulation encouraged - Time Spent with Patient Time with patient: Less than 15 minutes Medications reviewed and adjusted accordingly: Yes - Disposition Anticipated Discharge: Home Within: within 24 hours
[2019-08-15] MEDS: ACETAMINOPHEN WITH CODEINE #3 TABLET PO PRN (21:18)
[2019-08-16] MEDS: ACETAMINOPHEN WITH CODEINE #3 TABLET PO PRN ×2 (05:54→11:06)
[2019-08-16] MEDS: IBUPROFEN 800 MG TABLET PO SCH (05:54)
[2019-08-16 08:50] VITALS: BP 121/59
--- NOTE | 2019-08-16 09:59 | PDOC DISCHARGE SUMMARY ---
Impression - Admit/DC Date/PCP Admission Date/Primary Care Provider: 08/14/19 02:12 DENISE PATINO MD Discharge Date: 08/16/19 - Discharge Diagnosis (1) Delivery normal Is this a current diagnosis for this admission?: Yes (2) Routine follow-up Is this a current diagnosis for this admission?: Yes - Additional Information Resuscitation Status: Full Code Discharge Diet: Regular Discharge Activity: Balance Activity w/Rest, Pelvic Rest Referrals: DENISE PATINO MD [Primary Care Provider] - Prescriptions: Acetaminophen with Codeine [Tylenol #3 Tablet] 1 each PO Q4HP PRN #20 tablet PRN Reason: Pain Scale Of 4 Ibuprofen [Motrin 800 mg Tablet] 800 mg PO Q8HP PRN #60 tablet PRN Reason: Pain Scale Of 2 Home Medications: Vits96/Iron Fum/Folic [ Tablet] 1 each PO DAILY 08/06/19 Ferrous Gluconate [Iron] 1 tab PO DAILY 08/14/19 Acetaminophen with Codeine [Tylenol #3 Tablet] 1 each PO Q4HP PRN #20 tablet 08/16/19 Ibuprofen [Motrin 800 mg Tablet] 800 mg PO Q8HP PRN #60 tablet 08/16/19 Results Laboratory Results: WBC 8.7 10^3/uL (4.0-10.5) 08/14/19 16:32 RBC 4.94 10^6/uL (3.72-5.28) 08/14/19 16:32 Hgb 12.6 g/dL (12.0-15.5) 08/14/19 16:32 Hct 37.9 % (36.0-47.0) 08/14/19 16:32 MCV 77 fl (80-97) L 08/14/19 16:32 MCH 25.6 pg (27.0-33.4) L 08/14/19 16:32 MCHC 33.3 g/dL (32.0-36.0) 08/14/19 16:32 RDW 16.5 % (11.5-14.0) H 08/14/19 16:32 Plt Count 242 10^3/uL (150-450) 08/14/19 16:32 Lymph % (Auto) 18.8 % (13-45) 08/14/19 02:42 [place] % (Auto) 12.3 % (3-13) 08/14/19 02:42 Eos % (Auto) 0.4 % (0-6) 08/14/19 02:42 Baso % (Auto) 0.4 % (0-2) 08/14/19 02:42 Absolute Neuts (auto) 3.7 10^3/uL (1.7-8.2) 08/14/19 02:42 Absolute Lymphs (auto) 1.0 10^3/uL (0.5-4.7) 08/14/19 02:42 Absolute Monos (auto) 0.7 10^3/uL (0.1-1.4) 08/14/19 02:42 Absolute Eos (auto) 0.0 10^3/uL (0.0-0.6) 08/14/19 02:42 Absolute Basos (auto) 0.0 10^3/uL (0.0-0.2) 08/14/19 02:42 Seg Neutrophils % 68.1 % (42-78) 08/14/19 02:42 Urine Color YELLOW 08/14/19 01:35 Urine Appearance CLOUDY 08/14/19 01:35 Urine pH 7.0 (5.0-9.0) 08/14/19 01:35 Ur Specific [place] 1.008 08/14/19 01:35 Urine Protein 30 mg/dL (NEGATIVE) H 08/14/19 01:35 Urine Glucose (UA) NEGATIVE mg/dL (NEGATIVE) 08/14/19 01:35 Urine Ketones NEGATIVE mg/dL (NEGATIVE) 08/14/19 01:35 Urine Blood MODERATE (NEGATIVE) H 08/14/19 01:35 Urine Nitrite NEGATIVE (NEGATIVE) 08/14/19 01:35 Urine Bilirubin NEGATIVE (NEGATIVE) 08/14/19 01:35 Urine Urobilinogen NEGATIVE mg/dL (<2.0) 08/14/19 01:35 Ur Leukocyte Esterase NEGATIVE (NEGATIVE) 08/14/19 01:35 Urine Ascorbic Acid NEGATIVE (NEGATIVE) 08/14/19 01:35 Membranes Rupture POSITIVE (NEGATIVE) H 08/14/19 01:35 Urine Opiates Screen NEGATIVE 08/14/19 01:35 Urine Methadone Screen NEGATIVE 08/14/19 01:35 Ur Barbiturates Screen NEGATIVE 01/28/20 01:35 Ur Phencyclidine Scrn NEGATIVE 08/14/19 01:35 Ur Amphetamines Screen NEGATIVE 08/14/19 01:35 U Benzodiazepines Scrn NEGATIVE 08/14/19 01:35 Urine Cocaine Screen NEGATIVE 08/14/19 01:35 U Marijuana (THC) Screen NEGATIVE 08/14/19 01:35 RPR NONREACTIVE (NONREACTIVE) 08/14/19 02:42 Blood Type O POSITIVE 08/14/19 02:42 Antibody Screen NEGATIVE 08/14/19 02:42
[2019-08-16] MEDS: PRENATAL VITAMIN W DHA CAPSULE PO SCH (11:02)
[2019-08-16] MEDS: SENNOSIDES/DOCUSATE 8.6-50 MG 1 EACH TABLET PO SCH (11:03)
[2019-08-16] MEDS: DOCUSATE SODIUM 100 MG CAPSULE PO SCH (11:03)
[2019-08-16] MEDS: FAMOTIDINE 20 MG TABLET PO SCH (11:03)
[2019-08-16] MEDS: FERROUS SULFATE 325 MG TABLET PO SCH (11:03)
[2019-08-16] MEDS: BENZOCAINE/MENTHOL AEROSOL SPRAY 56 ML TOP PRN (12:44)
== END 2019-08-16 12:50 | disposition home or self-care (01) | DRG 807 ==
LOC: LC 01:12 → LR 02:12 → 2S 08-15 08:35
PROVIDERS: ADMIT Obstetrics & Gynecology; ATTEND Obstetrics & Gynecology
PROC: 10E0XZZ Delivery of Products of Conception, External Approach (ICD-10-PCS; principal; 2019-08-14)
PROC: 3E033VJ Introduction of Other Hormone into Peripheral Vein, Percutaneous Approach (ICD-10-PCS; 2019-08-14)
DX: O66.0 Obstructed labor due to shoulder dystocia (principal); Z37.0 Single live birth; Z3A.38 38 weeks gestation of pregnancy
CPT/HCPCS: 36415; 80307; 81005; 84112; 85025; 86592; 86850; 86900; 86901; 94760; J2300; J2370; J2590; J3010; J3490

== ENCOUNTER 2019-09-19 15:47 | Emergency (ER) | payer MEDICAID ==
--- NOTE | 2019-09-19 17:37 | ER Document Report ---
ED Medical Screen (RME) - General Stated Complaint: RIGHT ABDOMINAL PAIN Time Seen by Provider: 09/19/19 17:31 Primary Care Provider: DENISE PATINO MD [Primary Care Provider] - Follow up as needed Notes: HPI: 39-year-old female who is 1 month vaginal delivery at term with right upper quadrant pain fairly constant for 3 days with chills and subjective fevers. Has had nausea no vomiting. Denies breast pain redness or tenderness. Patient states she started with some periumbilical cramping and discomfort that was intermittent in nature over the last week but in the last 3 days she has had more constant right upper quadrant pain. Feels like it radiates into the back on the right side. I have greeted and performed a rapid initial assessment of this patient. A comprehensive ED assessment and evaluation of the patient, analysis of test results and completion of the medical decision making process will be conducted by additional ED providers PHYSICAL EXAMINATION: GENERAL: Well-appearing, well-nourished and in mild acute distress. HEAD: Atraumatic, normocephalic. EYES: sclera anicteric, conjunctiva are normal. ENT: Moist mucous membranes. NECK: Normal range of motion LUNGS: Normal work of breathing, clear to auscultation HEART: 2+ radial pulses bilaterally, regular rate and rhythm ABD: limited by positioning for exam in triage. Moderately uncomfortable in the right upper quadrant on palpation, no right lower quadrant tenderness on palpation EXTREMITIES: no pitting or edema. No cyanosis. NEUROLOGICAL: No focal neurological deficits. Moves all extremities spontaneously and on command. PSYCH: Normal mood, normal affect. SKIN: Warm, Dry, normal turgor, no rashes or lesions noted. TRAVEL OUTSIDE OF THE [place] IN LAST 30 DAYS: No - Related Data Allergies/Adverse Reactions: No Known Allergies Allergy (Verified 09/19/19 17:30) Past Medical History Renal/ Medical History: Denies: Hx Peritoneal Dialysis - Immunizations Hx Diphtheria, Pertussis, Tetanus Vaccination: No Physical Exam - Vital signs Vitals: Temp Pulse Resp BP Pulse Ox 98.3 F 92 20 127/69 H 97 09/19/19 16:33 09/19/19 16:33 09/19/19 16:33 09/19/19 16:33 09/19/19 16:33 Course - Vital Signs Vital signs: Temp Pulse Resp BP Pulse Ox 98.3 F 92 20 127/69 H 97 09/19/19 16:33 09/19/19 16:33 09/19/19 16:33 09/19/19 16:33 09/19/19 16:33 Doctor's Discharge - Discharge Referrals: DENISE PATINO MD [Primary Care Provider] - Follow up as needed
--- NOTE | 2019-09-19 18:43 | RADIOLOGY REPORT (SQ) ---
EXAM DESCRIPTION: U/S ABDOMEN LIMITED W/O DOP COMPLETED DATE/TIME: 09/19/2019 6:29 pm REASON FOR STUDY: RUQ pain fever COMPARISON: None. TECHNIQUE: Dynamic and static grayscale images acquired of the abdomen and recorded on PACS. [place] selected color Doppler and spectral images recorded. LIMITATIONS: None. FINDINGS: PANCREAS: No masses. Visualized pancreatic duct normal caliber. LIVER: No masses. Echotexture normal. LIVER VASCULATURE: Normal directional flow of the main portal vein and hepatic veins. GALLBLADDER: No stones. Normal wall thickness. No pericholecystic fluid. ULTRASOUND-DETECTED MAYEN'S SIGN: Negative. INTRAHEPATIC DUCTS AND COMMON DUCT: CBD and intrahepatic ducts normal caliber. No filling defects. INFERIOR VENA CAVA: Normal flow. AORTA: No aneurysm. RIGHT KIDNEY: Normal size. Normal echogenicity. No solid or suspicious masses. No hydronephrosis. No calcifications. PERITONEAL AND RIGHT PLEURAL SPACE: No ascites or effusions. OTHER: No other significant findings. IMPRESSION: NORMAL RIGHT UPPER QUADRANT ULTRASOUND. TECHNICAL DOCUMENTATION: JOB ID: [id number] 2010 [employer]- All Rights Reserved Reading location - IP/workstation name: [email or web address]
[2019-09-19 19:31] LABS: ABSOLUTE BASOPHILS # (AUTO) 0.1 10^3/uL (0.0-0.2); ABSOLUTE LYMPHOCYTES (AUTO) 1.2 10^3/uL (0.5-4.7); ABSOLUTE MONOCYTES (AUTO) 0.8 10^3/uL (0.1-1.4); ABSOLUTE NEUT (AUTO) 5.9 10^3/uL (1.7-8.2); BASOPHILS % (AUTO) 0.8 % (0-2); EOSINOPHILS % (AUTO) 0.1 % (0-6); HEMATOCRIT 42.4 % (36.0-47.0); HEMOGLOBIN 14.1 g/dL (12.0-15.5); LYMPHOCYTES % (AUTO) 14.7 % (13-45); MEAN CORPUSCULAR HEMOGLOBIN 25.3 pg (27.0-33.4); MEAN CORPUSCULAR HGB CONC 33.2 g/dL (32.0-36.0); MEAN CORPUSCULAR VOLUME 76 fl (80-97); MONOCYTES % (AUTO) 9.9 % (3-13); PLATELET COUNT 232 10^3/uL (150-450); RED BLOOD COUNT 5.57 10^6/uL (3.72-5.28); RED CELL DISTRIBUTION WIDTH 16.4 % (11.5-14.0); SEGMENTED NEUTROPHILS % (AUTO) 74.5 % (42-78); TOTAL CELLS COUNTED % (AUTO) 100 %; WHITE BLOOD COUNT 7.9 10^3/uL (4.0-10.5)
[2019-09-19 20:17] LABS: ALBUMIN 4.3 g/dL (3.5-5.0); ALKALINE PHOSPHATASE 75 U/L (38-126); ANION GAP 12 (5-19); ASPARTATE AMINO TRANSFERASE 30 U/L (14-36); BILIRUBIN,DIRECT 0.3 mg/dL (0.0-0.4); BILIRUBIN,TOTAL 0.9 mg/dL (0.2-1.3); BLOOD UREA NITROGEN 9 mg/dL (7-20); CALCIUM 9.3 mg/dL (8.4-10.2); CARBON DIOXIDE 25 mmol/L (22-30); CHLORIDE 100 mmol/L (98-107); GLUCOSE 79 mg/dL (75-110); POTASSIUM 3.9 mmol/L (3.6-5.0); TOTAL PROTEIN 7.9 g/dL (6.3-8.2)
[2019-09-19 20:43] LABS: APPEARANCE,URINE SLIGHTLY-CLOUDY; BILIRUBIN,URINE NEGATIVE (NEGATIVE); COLOR,URINE YELLOW; GLUCOSE, URINE NEGATIVE (NEGATIVE); KETONES,URINE 20 mg/dL (NEGATIVE); LEUKOCYTE ESTERASE,URINE SMALL (NEGATIVE); NITRITE,URINE NEGATIVE (NEGATIVE); PROTEIN,URINE NEGATIVE (NEGATIVE); URINE SPECIFIC GRAVITY 1.019
--- NOTE | 2019-09-19 22:18 | RADIOLOGY REPORT (SQ) ---
EXAM DESCRIPTION: Contrast-enhanced CT scan of the abdomen and pelvis CLINICAL HISTORY: 39 years Female; RLQ Pain s/p delivery Jul TECHNIQUE: CT of the abdomen and pelvis with intravenous contrast. Delayed imaging of the abdomen and pelvis was also performed. All CT scans at this facility use dose modulation, iterative reconstruction, and/or weight based dosing when appropriate to reduce radiation dose to as low as reasonably achievable. This exam was performed according to our department optimization program which includes automated exposure control, adjustment of the mA and/or kv according to patient size and/or use of iterative reconstruction technique. COMPARISON: None. FINDINGS: Lower chest: 3 mm pulmonary nodule seen along the fissure in the left lung. The lungs are otherwise clear. No pneumothorax or pleural effusion. Heart size is normal. Abdomen: Liver and biliary tree: Mild diffuse fatty infiltration of the liver. The gallbladder is unremarkable. Portal vein and hepatic veins are patent. Pancreas: Normal Spleen:Within normal limits Kidneys: Kidneys are normal in size, shape and position. No stones. No mass or hydronephrosis. Symmetric renal enhancement. On delayed images there is symmetric contrast excretion and the ureters are unremarkable. Adrenal glands:Within normal limits Vascular structures:Within normal limits Retroperitoneum: No mass or lymphadenopathy the right gonadal veins are distended. There is enhancement of the canal veins. Abdominal wall: normal GI: Moderate stool is present throughout the colon. Inflammation is seen adjacent to the right colon with fluid tracking along the right paracolic gutter. There are diverticula in this region and this may represent subtle diverticulitis. Appendix: The appendix is visualized. It is distended with air and measures up to 7 mm. No definitive acute appendicitis or perforation. Terminal ileum appears normal. General: Free fluid is present along the right paracolic gutter and in the pelvis. Trace free fluid in the cul-de-sac Pelvis: Lymph nodes: No mass or lymphadenopathy Bladder: Unremarkable. Pelvis: The uterus is enlarged consistent with the state. In the right side of the uterus is an eggshell calcification measuring 3.7 cm with central low density. This most likely represents a myoma. There does appear to be some fluid scattered in the endometrial canal. There is a low density area in the posterior myometrium which also may represent a small myoma. Bones: Degenerative changes noted in the lower lumbar spine. IMPRESSION: Subtle inflammation involving the distal right colon with pericolonic soft tissue stranding and fluid. This suggests focal colitis or diverticulitis. The appendix is visualized but does not appear to be inflamed. appearance of the uterus. No hydronephrosis bilaterally.
[2019-09-19 22:43] VITALS: BP 131/60
--- NOTE | 2019-09-19 22:57 | ER Document Report ---
ED General - General Chief Complaint: Abdominal Pain Stated Complaint: RIGHT ABDOMINAL PAIN Time Seen by Provider: 09/19/19 17:31 Primary Care Provider: DENISE PATINO MD [Primary Care Provider] - Follow up as needed Mode of Arrival: Ambulatory Information source: Patient, Relative Notes: Patient is a 39-year-old female presenting to the emergency department chief complaint of abdominal pain. Patient states is been ongoing for the past week she states that about a week ago she had a large bowel movement and since that time has not had a repeat bowel movement but is had generalized aches and pains worse to the right lower quadrant she also reports fever and chills without objective temperature for the past 2 days. Patient states she had a normal vaginal delivery August 06 she had a appointment which was determined to be normal. Patient denies travel history trauma history or obvious sick contacts. TRAVEL OUTSIDE OF THE [place] IN LAST 30 DAYS: No - HPI Onset: Last week Onset/Duration: Gradual, Worse Quality of pain: Cramping Severity: Moderate Pain Level: 2 Associated symptoms: None Exacerbated by: Movement Relieved by: Denies Similar symptoms previously: No Recently seen / treated by doctor: No - Related Data Allergies/Adverse Reactions: No Known Allergies Allergy (Verified 09/19/19 17:30) Past Medical History - General Information source: Patient, Relative - Social History Smoking Status: Never Smoker Chew tobacco use (# tins/day): No Frequency of alcohol use: None Drug Abuse: None Lives with: Family, Spouse/Significant other Family History: Reviewed & Not Pertinent Patient has suicidal ideation: No Patient has homicidal ideation: No - Medical History Medical History: Negative Renal/ Medical History: Denies: Hx Peritoneal Dialysis Surgical Hx: Negative - Immunizations Hx Diphtheria, Pertussis, Tetanus Vaccination: No Review of Systems - Review of Systems Notes: REVIEW OF SYSTEMS: CONSTITUTIONAL : Denies fever, chills, or sweats. Denies recent illness. EENT: Denies eye, ear, throat, or mouth pain or symptoms. Denies nasal or sinus congestion. CARDIOVASCULAR: Denies chest pain. RESPIRATORY: Denies cough, cold, or chest congestion. Denies shortness of breath, difficulty breathing, or wheezing. GASTROINTESTINAL: Per HPI GENITOURINARY: Denies difficulty urinating, painful urination, burning, frequency, or blood in urine. MUSCULOSKELETAL: Denies neck or back pain or joint pain or swelling. SKIN: Denies rash or skin lesions. HEMATOLOGIC : Denies easy bruising or bleeding. NEUROLOGICAL: Denies altered mental status or loss of consciousness. Denies headache. Denies weakness or paralysis or loss of use of either side. Denies problems with gait or speech. Denies sensory or motor loss. PSYCHIATRIC: Denies suicidal or homicidal ideations 10 Systems are negative unless otherwise specified above Physical Exam - Vital signs Vitals: Temp Pulse Resp BP Pulse Ox 98.3 F 92 20 127/69 H 97 09/19/19 16:33 09/19/19 16:33 09/19/19 16:33 09/19/19 16:33 09/19/19 16:33 - Notes Notes: PHYSICAL EXAMINATION: GENERAL: Well-appearing, well-nourished and in no acute distress. HEAD: Atraumatic, normocephalic. EYES: Pupils equal round and reactive to light, extraocular movements intact, sclera anicteric, conjunctiva are normal. ENT: nares patent, oropharynx clear without exudates. Moist mucous membranes. NECK: Normal range of motion, supple without lymphadenopathy, no appreciable JVD LUNGS: Lungs clear to auscultation bilaterally and equal. No wheezes rales or rhonchi. HEART: Regular rate and rhythm without murmurs ABDOMEN: Soft, mildyl tender to RLQ, normal bowel sounds. Patient did have tenderness with and without palpation positive psoas sign minimal guarding EXTREMITIES: Active full range of motion, no pitting or edema. No cyanosis. 2+ pulses x4 NEUROLOGICAL: No focal neurological deficits. Moves all extremities spontaneously and on command. SKIN: Warm, Dry, and intact. Normal turgor, no rashes or lesions noted. Course - Re-evaluation Re-evalutation: 09/19/19 23:44 Patient has been reevaluated multiple times while in the emergency department. The patient has remained stable. I have reviewed the patient's laboratory and radiologic results. Ultrasound demonstrated no significant right upper quadrant findings. The CT of the abdomen and pelvis demonstrated a normal appendix with signs of colitis to the right lower quadrant. I did discuss this with the patient we discussed the BRAT Diet. Patient is recommended to follow-up with her primary care provider in the next couple of days or return to the emergency department for worsening symptoms. - Vital Signs Vital signs: Temp Pulse Resp BP Pulse Ox 98.3 F 81 18 131/60 H 97 09/19/19 22:43 09/19/19 22:43 09/19/19 22:43 09/19/19 22:43 09/19/19 22:43 - Laboratory Result Diagrams: 09/19/19 19:18 09/19/19 19:19 Laboratory results interpreted by me: 09/19/19 09/19/19 09/19/19 19:18 19:19 20:31 RBC 5.57 H MCV 76 L MCH 25.3 L RDW 16.4 H Sodium 136.9 L Lipase 10.3 L Urine Ketones 20 H Urine Urobilinogen 2.0 H Ur Leukocyte Esterase SMALL H Urine Ascorbic Acid 40 H - Diagnostic Test Radiology reviewed: Reports reviewed Discharge - Discharge Clinical Impression: Colitis Abdominal pain Qualifiers: Abdominal location: right lower quadrant Qualified Code(s): R10.31 - Right lower quadrant pain Condition: Stable Disposition: HOME, SELF-CARE Instructions: Abdominal Pain ([facility]), Low-Fat Diet ([facility]) Additional Instructions: ABDOMINAL PAIN: There are many causes of abdominal pain. Pain can mean a serious problem requiring surgery (such as appendicitis). It can also be an innocent problem jose t goes away on its own (such as a viral infection). Often, time must pass to determine the cause of pain. The physician does not feel that hospitalization is necessary, at present. Things may change within the next 24 hours. Call the doctor or come back for re- examination if any problems occur, such as: (1) Pain that becomes more severe, steady, or becomes concentrated in one specific area. Also, pain that is more severe with movement or coughing. (2) Vomiting that persists or becomes more frequent. (3) Blood in the vomitus, urine, or bowel movements. Blood in the stool may have a tarry or black appearance. (4) Shaking chills or fever greater than 100 degrees F. (5) The abdomen becomes more distended or swollen. (6) Bowel movements cease. (7) Failure to improve as expected. COLITIS, NONSPECIFIC: Colitis is an inflammatory disease of the large intestine which affects the lining of the bowel. The cause is uncertain, though it is often caused by an infection. In some cases, the symptoms resolve and can return again in the future. Colitis is characterized by abdominal pain, often nausea and vomiting, and either diarrhea or difficulty with bowel movements. Sometimes blood will be present in the bowel movements. Fever is often present as well. Milder cases of colitis can be managed as an outpatient with medications for nausea and vomiting and pain, oral fluid therapy, and perhaps antibiotics, if a bacterial origin is suspected. Antidiarrhea medicine should usually be avoided in colitis. If you have increasing abdominal pain, repeated vomiting, fever, rectal bleeding, or worsening diarrhea, you should return for re-evaluation. FOLLOW-UP CARE: If you have been referred to a physician for follow-up care, call the physicians office for an appointment as you were instructed or within the next two days. If you experience worsening or a significant change in your symptoms, notify the physician immediately or return to the Emergency Department at any time for re-evaluation. Referrals: DENISE PATINO MD [Primary Care Provider] - Follow up as needed
== END 2019-09-19 23:09 | disposition home or self-care (01) ==
LOC: ER 15:47
DX: K52.9 Noninfective gastroenteritis and colitis, unspecified (principal); R10.31 Right lower quadrant pain; R10.33 Periumbilical pain; R50.9 Fever, unspecified; R11.0 Nausea
CPT/HCPCS: 36415; 74177; 76705; 80053; 81001; 81025; 83690; 85025; 99284